=== PATIENT | female | born 1970 | race Two or more races ===

== ENCOUNTER 2017-05-04 13:21 | Emergency (ER) | payer OTHER ==
[2017-05-04 13:29] VITALS: BMI 39.5
--- NOTE | 2017-05-04 15:53 | PDOC ---
History of Present Illness - General History Source: Patient Exam Limitations: No Limitations - History of Present Illness Initial Comments: 05/04/17 15:54 The patient is a 46-year-old female with a significant past medical history of HTN and diabetes, who presents to the emergency department with a raised right upper arm lesion, redness, swelling, and itchiness for 4 days. The abscess is located at the right anterior upper arm and she notes drainage of pus. She is unsure how the lesion began, but notes it started off as generalized redness at the arm. She reports her doctor gave her amoxicillin 875 with no significant relief. She denies current fever and chills but notes she had a fever the first two days which has now resolved. Pt denies chest pain, shortness of breath, headache and dizziness. Pt denies nausea, vomit, diarrhea and constipation. Pt denies dysuria, frequency, urgency and hematuria. Allergies: NKDA Past surgical history: None reported Social history: No toxic habits reported PCP: Dr. Chirag Lawrence <Iza Ambriz - Last Filed: 05/04/17 15:54> - General History Source: Patient Exam Limitations: No Limitations <Fernanda Ortega - Last Filed: 05/04/17 16:17> - General Chief Complaint: Redness To Affected Area Stated Complaint: RT ARM PAIN Past History <Iza Ambriz - Last Filed: 05/04/17 15:54> - Past Medical History COPD: No Diabetes: Yes (no meds) HTN: Yes - Suicide/Smoking/Psychosocial Hx Smoking Status: No Smoking History: Never smoked Number of Cigarettes Smoked Daily: 0 Hx Alcohol Use: No Drug/Substance Use Hx: No <Fernanda Ortega - Last Filed: 05/04/17 16:17> - Past Medical History Allergies/Adverse Reactions: Allergies Allergy/AdvReac Type Severity Reaction Status Date / Time No Known Allergies Allergy Verified 05/04/17 13:23 Home Medications: Ambulatory Orders Naproxen [Naprosyn -] 500 mg PO BID PRN #14 tablet 12/04/15 Amlodipine Besylate [Norvasc -] 5 mg PO DAILY 05/04/17 Amoxicillin - [Amoxicillin 875mg Tablet -] 875 mg PO BID 05/04/17 Losartan Potassium 100 mg PO DAILY 05/04/17 Sulfamethoxazole/Trimethoprim [Bactrim Ds -] 1 tab PO BID #5 tablet 05/04/17 Review of Systems - Review of Systems Able to Perform ROS?: Yes Comments:: 05/04/17 15:54 GENERAL/CONSTITUTIONAL: No fever or chills. No weakness. HEAD, EYES, EARS, NOSE AND THROAT: No change in vision. No ear pain or discharge. No sore throat. GASTROINTESTINAL: No nausea, vomiting, diarrhea or constipation. GENITOURINARY: No dysuria, frequency, or change in urination. CARDIOVASCULAR: No chest pain or shortness of breath. RESPIRATORY: No cough, wheezing, or hemoptysis. MUSCULOSKELETAL: No joint or muscle swelling or pain. No neck or back pain. SKIN: No rash. (+) RUE lesion, swelling, and redness. NEUROLOGIC: No headache, vertigo, loss of consciousness, or change in strength/ sensation. ENDOCRINE: No increased thirst. No abnormal weight change. HEMATOLOGIC/LYMPHATIC: No anemia, easy bleeding, or history of blood clots. ALLERGIC/IMMUNOLOGIC: No hives or skin allergy. <Iza Ambriz - Last Filed: 05/04/17 15:54> *Physical Exam - Vital Signs Last Vital Signs Temp Pulse Resp BP Pulse Ox 98.4 F 111 H 22 160/92 98 05/04/17 13:23 05/04/17 13:23 05/04/17 13:23 05/04/17 13:23 05/04/17 13:23 - Physical Exam Comments: 05/04/17 15:55 GENERAL: Awake, alert, and fully oriented, in no acute distress HEAD: No signs of trauma EYES: PERRLA, EOMI, sclera anicteric, conjunctiva clear ENT: Auricles normal inspection, nares patent, Moist mucosa NECK: Normal ROM, supple, no lymphadenopathy, JVD, or masses LUNGS: Breath sounds equal, clear to auscultation bilaterally. No wheezes, and no crackles HEART: Regular rate and rhythm, normal S1 and S2, no murmurs, rubs or gallops ABDOMEN: Soft, nontender, normoactive bowel sounds. No guarding, no rebound. No masses EXTREMITIES: Normal range of motion, no edema. No clubbing or cyanosis. No cords, erythema, or tenderness NEUROLOGICAL: Distally normal, vascularly intact. A&O x3. Normal speech SKIN: Warm, Dry, normal turgor. (+) 2x1 cm indurated area at RUE with central fluctuance with some purulent drainage. (+) Small surrounding erythema. <Iza Ambriz - Last Filed: 05/04/17 15:54> - Vital Signs Last Vital Signs Temp Pulse Resp BP Pulse Ox 98.4 F 111 H 22 160/92 98 05/04/17 13:23 05/04/17 13:23 05/04/17 13:23 05/04/17 13:23 05/04/17 13:23 <Fernanda Ortega - Last Filed: 05/04/17 16:17> Procedures - Incision and Drainage I&D Site: Right: Arm Betadine cleansed: Yes Anesthesia: 1% Lidocaine Blade Size: 11 Plain Packing: No Complications: none Dressing: Yes <Fernanda Ortega - Last Filed: 05/04/17 16:17> Medical Decision Making - Medical Decision Making 05/04/17 15:48 46 yo F with 4-5 days right arm swelling redness and now boil. on amoxicillin, and steroid cream. Redness improved, but area around boil now draining. she had fever and chills initially no longer having them. on exam right arm with abscess, some drainage. plan I & D change antibiotics to cover comm aq mrsa. 05/04/17 16:14 I &D abscess tolerated well. expressed 1 ml purulent drainage. switch to bactrim <Fernanda Ortega - Last Filed: 05/04/17 16:17> *DC/Admit/Observation/Transfer - Attestations Scribe Attestion: 05/04/17 15:55 Documentation prepared by Iza Ambriz, acting as medical driver for Fernanda Ortega MD, /DO. <Iza Ambriz - Last Filed: 05/04/17 15:54> <Fernanda Ortega - Last Filed: 05/04/17 16:17> Diagnosis at time of Disposition: Abscess - Discharge Dispostion Disposition: HOME Condition at time of disposition: Improved - Prescriptions Prescriptions: Sulfamethoxazole/Trimethoprim [Bactrim Ds -] 1 tab PO BID #5 tablet - Referrals Referrals: Chirag Lawrence [Primary Care Provider] - - Patient Instructions Printed Discharge Instructions: DI for Incision and Drainage of a Skin Abscess Additional Instructions: take bactrim twice daily x 5 days. take ibuprofen 400 mg every 8 hrs as needed for pain. return for worsening redness or swelling. follow up with your regular doctor. Print Language: TURKISH
[2017-05-04] MEDS ORDERED: IBUPROFEN 600 MG TABLET (FP) PO ONE (16:17)
[2017-05-04] MEDS ORDERED: SULFAMETHOXAZOLE/TRIMETHOPRIM 800MG/160MG D.S. TABLET PO ONE (16:17)
[2017-05-04] MEDS ORDERED: SULFAMETHOXAZOLE/TRIMETHOPRIM 800MG/160MG D.S. TABLET ONE (16:22)
[2017-05-04] MEDS ORDERED: IBUPROFEN 400 MG TABLET (FP) PO ONE (16:23)
[2017-05-04 16:29] VITALS: BP 139/79; PULSE 90; TEMP 98.3
== END 2017-05-04 16:29 | disposition home or self-care (01) ==
LOC: JER 13:21
PROC: 0J9D0ZZ Drainage of Right Upper Arm Subcutaneous Tissue and Fascia, Open Approach (ICD-10-PCS; principal; 2017-05-04)
DX: L02.413 Cutaneous abscess of right upper limb (principal)
CPT/HCPCS: 10060; 87070; 87205; 99282-25

== ENCOUNTER 2022-10-08 04:45 | Day surgery (SDC) | payer OTHER ==
[2022-10-07 12:47] VITALS: BMI 40.2
[2022-10-08 14:12] VITALS: BP 119/64; PULSE 80; RESP 14; TEMP 98.3
== END 2022-10-08 14:10 | disposition home or self-care (01) ==
LOC: JASU-ENDO 04:45
PROVIDERS: ATTEND Internal Medicine Gastroenterology
PROC: 0DBN8ZX Excision of Sigmoid Colon, Via Natural or Artificial Opening Endoscopic, Diagnostic (ICD-10-PCS; principal; 2022-10-08 12:30)
DX: Z12.11 Encounter for screening for malignant neoplasm of colon (principal); D12.5 Benign neoplasm of sigmoid colon; K57.30 Diverticulosis of large intestine without perforation or abscess without bleeding; I10 Essential (primary) hypertension; E11.9 Type 2 diabetes mellitus without complications
CPT/HCPCS: 81025; 82962; 88305-TC